=== PATIENT | female | born 1990 | race Caucasian/White ===

== ENCOUNTER → 2016-11-30 | Outpatient (CLI) | payer OTHER ==
[~2016-11-30] MED LIST: ACET50TA PO; IBUP80TA PO; PRENTAB7 PO
[2016-11-30 16:12] LABS: BASO % 0.3 % (0.0-1.0); EOS # 0.1 K/mm3 (0.0-0.50); EOS % 0.9 % (0.0-3.0); LARGE UNSTAINED CELL # 0.1 K/mm3 (0.0-0.4); LARGE UNSTAINED CELL % 1.1 % (0.0-4.0); LYMPH # 1.4 K/mm3 (1.5-6.5); LYMPH % 20.8 % (24.0-44.0); MEAN CORPUSCULAR HEMOGLOBIN 31.4 pg (27.0-33.0); MEAN CORPUSCULAR HGB CONC 34.7 g/dl (32.0-36.5); MEAN CORPUSCULAR VOLUME 90.5 fl (80.0-96.0); MONO # 0.3 K/mm3 (0.0-0.8); MONO % 4.2 % (0.0-5.0); NEUTROPHILS # 4.6 K/mm3 (1.8-7.7); NEUTROPHILS % 72.7 % (36.0-66.0); PLATELET COUNT, AUTOMATED 205 k/mm3 (150-450); RED CELL DISTRIBUTION WIDTH 12.2 % (11.5-14.5); WHITE BLOOD COUNT 6.4 K/mm3 (4.0-10.0)
[2016-12-01 11:42] LABS: HBsAg Prenatal NEGATIVE (NEGATIVE)
[2016-12-01 14:07] LABS: HIV SCRN NEGATIVE (NEGATIVE)
[2016-12-01 14:08] LABS: CONTROL LINE INT CTR LINE PRESENT; HIV SCRN1 NEGATIVE (NEGATIVE)
== END ==
LOC: M SMT 13:26
PROVIDERS: ATTEND Specialist
DX: Z34.81 Encounter for supervision of other normal pregnancy, first trimester (principal)

== ENCOUNTER → 2017-01-31 | Outpatient (CLI) | payer OTHER ==
--- NOTE | 2017-02-01 05:46 | REP ---
Clinical: Anatomical evaluation. Comparison: None . Findings: Examination demonstrates a single live intrauterine in cephalic presentation. motion is identified by technologist. Placenta is noted anteriorly and grade zero without evidence for placenta previa or abruption. Amniotic fluid volume is normal. Cervix measures 4.0 cm in length and appears closed. Evidence for nuchal cord. Gestational age by LMP 18 weeks 2 days with JULIA 07/02/2017 . Gestational age by current measurements 18 weeks 3 days with JULIA 07/01/2017 . FHR equals 155 beats per minute. BPD 4.0 cm 18 weeks 1 day HC 15.7 cm 18 weeks 4 days AC 12.8 cm 18 weeks 3 days FL 2.6 cm 18 weeks 0 days HL 2.7 cm 18 weeks 4 days HC/AC ratio 1.22 Estimated weight 231 grams ( 44th percentile). Anatomical assessment demonstrates normal structures including cranium, choroid plexus, cavum, cerebellum/posterior fossa, facial profile, lungs, diaphragm, stomach, cord insertion/three-vessel cord, kidneys/bladder, and extremities. Limited evaluation of the facial features, heart/ventricular outflow tracts, and spine noted. Impression: Single live intrauterine in cephalic presentation demonstrating appropriate interval growth. Anatomical limitations as described above may warrant reevaluation and follow-up. Nuchal cord noted. Signed by Stewart Leung MD 02/01/2017 05:37 A
== END ==
LOC: M RAD 10:39
PROVIDERS: ATTEND Obstetrics & Gynecology
DX: Z36 Encounter for antenatal screening of mother (principal)

== ENCOUNTER → 2017-03-15 | Outpatient (CLI) | payer OTHER ==
--- NOTE | 2017-03-16 03:49 | REP ---
Clinical: Anatomical evaluation. Comparison: 01/31/2017 . Findings: Examination demonstrates a single live intrauterine in oblique (head to maternal left) presentation. motion is identified by technologist. Placenta is noted anteriorly and grade one without evidence for placenta previa or abruption. Amniotic fluid volume is normal. Cervix measures 4.3 cm in length and appears closed. No evidence for nuchal cord. Gestational age by LMP 24 weeks 3 days with JULIA 06/01/2017 . Gestational age by current measurements 24 weeks 6 days with JULIA is 06/29/2017 . FHR equals 139 beats per minute. Estimated weight 786 grams ( 68th percentile). Anatomical assessment demonstrates normal structures including cranium, choroid plexus, cavum, cerebellum/posterior fossa, facial features, lungs, four-chamber heart/ventricular outflow tracts, diaphragm, stomach, cord insertion/three-vessel cord, kidneys/bladder, spine. Impression: 1. Single live intrauterine in transverse lie demonstrating appropriate interval growth. 2. In conjunction with prior examination anatomical assessment is complete and normal. Signed by Stewart Leung MD 03/16/2017 03:41 A
== END ==
LOC: M RAD 15:53
PROVIDERS: ATTEND Advanced Practice Midwife
DX: Z36 Encounter for antenatal screening of mother (principal)

== ENCOUNTER → 2017-04-19 | Outpatient (CLI) | payer OTHER ==
[~2017-04-19] MED LIST changes: +IBUP-1114 PO
[2017-04-19 09:20] LABS: BASO % 0.6 % (0.0-1.0); EOS # 0.1 K/mm3 (0.0-0.50); EOS % 1.1 % (0.0-3.0); LARGE UNSTAINED CELL # 0.1 K/mm3 (0.0-0.4); LARGE UNSTAINED CELL % 1.4 % (0.0-4.0); LYMPH # 1.6 K/mm3 (1.5-6.5); LYMPH % 20.1 % (24.0-44.0); MEAN CORPUSCULAR HEMOGLOBIN 33.2 pg (27.0-33.0); MEAN CORPUSCULAR HGB CONC 35.3 g/dl (32.0-36.5); MEAN CORPUSCULAR VOLUME 94.1 fl (80.0-96.0); MONO # 0.4 K/mm3 (0.0-0.8); MONO % 4.7 % (0.0-5.0); NEUTROPHILS # 5.6 K/mm3 (1.8-7.7); NEUTROPHILS % 72.2 % (36.0-66.0); PLATELET COUNT, AUTOMATED 152 k/mm3 (150-450); RED CELL DISTRIBUTION WIDTH 13.3 % (11.5-14.5); WHITE BLOOD COUNT 7.7 K/mm3 (4.0-10.0)
== END ==
LOC: M LAB 07:36
PROVIDERS: ATTEND Specialist
DX: Z34.82 Encounter for supervision of other normal pregnancy, second trimester (principal)

== ENCOUNTER → 2017-05-31 | Outpatient (REF) | payer OTHER | LOC: M LAB REF 13:30 | PROVIDERS: ATTEND Advanced Practice Midwife | DX: Z34.83 Encounter for supervision of other normal pregnancy, third trimester (principal) ==

== ENCOUNTER 2017-06-27 06:35 | Inpatient (IN) | payer OTHER ==
[2017-06-27] VITALS (7 sets, daily range): BP systolic 98–109; BP diastolic 58–83
[~2017-06-27] VITALS: Ht 154.9 cm; Wt 68.2 kg
[~2017-06-27 06:35] MED LIST changes: -IBUP-1114 PO
[2017-06-27] MEDS ORDERED: METHYLERGONOVINE MALEATE 0.2 MG TAB PO PRN (07:45)
[2017-06-27] MEDS ORDERED: DIBUCAINE 1% OINTMENT 30GM TOP PRN (07:45)
[2017-06-27] MEDS ORDERED: MEASLES,MUMPS,RUBELLA VACCINE INJ (MMR-II) (90707) SC SCH (07:45)
[2017-06-27] MEDS ORDERED: RHOGAM 300 MCG (1500 IU) INJ (J2790) IM SCH (07:45)
[2017-06-27] MEDS ORDERED: ACETAMINOPHEN 500 MG TAB PO PRN (07:45)
[2017-06-27] MEDS ORDERED: DOCUSATE SODIUM 100 MG CAP PO PRN (07:45)
[2017-06-27] MEDS ORDERED: MOM 30ML SUSPENSION UDC PO PRN (07:45)
[2017-06-27] MEDS ORDERED: ANUSOL HC CREAM 30GM TOP PRN (07:45)
[2017-06-27] MEDS ORDERED: OXYTOCIN INJ 10 UNITS/ML VIAL (J2590) IM ONE (07:45)
[2017-06-27] MEDS ORDERED: LIDOCAINE 1% MDV INJ 50 ML VIAL INFIL ONE (07:45)
--- NOTE | 2017-06-27 07:53 | DN ---
DATE: 06/27/2017 TIME OF : 6:49 GENDER: Male. APGARS: 9 and 9. WEIGHT: 3480 grams or 7 pounds 11 ounces. ANESTHESIA: None. COUNTS: 5 laparotomy sponges accounted for prior to and after delivery. Two sharps removed from delivery field. ESTIMATED BLOOD LOSS: 300 mL. DELIVERY NOTE: On 06/27/2017, at 0649, Ms. Delong a 27-year-old, 2, now para 2, had spontaneous vaginal delivery of a live-born male , Apgars 9 and 9. Weight was 3480 grams or 7 pounds 11 ounces. Head was delivered left occiput anterior (RASHMI). There was a nuchal cord which was manually reduced followed by delivery of the right anterior shoulder, left posterior shoulder and corpus. Infant was handed to mom with a good cry. Cord was clamped times two and was cut by the father of the baby under my direction. Cord blood was then obtained. Placenta was drained and delivered grossly intact. 10 milliunits of Pitocin was given IM along with uterine massage until the uterus was firm. On inspection, there was a first degree midline laceration which was repaired with #3-0 Vicryl Rapide. On reinspection, the cervix, vagina and perineum was grossly intact and hemostatic. Mom and baby to recovery in stable condition.
--- NOTE | 2017-06-27 07:55 | HPE ---
DATE OF ADMISSION: 06/27/2017 REASON FOR ADMISSION: Labor. HISTORY OF PRESENT ILLNESS: Ms. Delong is a 27-year-old 2, para 1, who presents at 39 weeks 2 days estimated gestational age by her last menstrual period, confirmed by first trimester ultrasound with complaints of contractions. She reports contractions that started approximately at 4 a.m. that have worsened in intensity and frequency. Her course has been unremarkable. She initiated care in the first trimester and has been appropriate throughout. PAST MEDICAL HISTORY: None. PAST SURGICAL HISTORY: None. PAST OBSTETRICAL HISTORY: She is 2, para 1. She has had one term vaginal delivery proven to 7 pounds 4 ounces. MEDICATIONS: Include: - vitamins She has NO KNOWN DRUG ALLERGIES. SOCIAL HISTORY: She denies any alcohol, tobacco, or drug use during the . PHYSICAL EXAMINATION: Her vital signs are stable. She is afebrile. She has category 1 heart tracing. Contractions ibrutinib tachometer. General appearance: Appears uncomfortable but no acute distress. Her abdomen is gravid, nontender. Cervical exam: She was completely dilated, 100% effaced, -1 station with spontaneous rupture of membranes shortly after exam of clear fluid. LABS: Her blood type is A negative. Antibody screen is negative. Rubella is immune. RPR nonreactive. Hepatitis surface antigen is negative. HIV is negative. Hepatitis C is nonreactive. Chlamydia and gonorrhea screens are negative. She had a normal 1-hour Glucola and she GBS negative. ASSESSMENT: 1. Ms. Delong is a 27-year-old 2, para 1, at 39 weeks 2 days estimated gestational age in active labor. 2. Reassuring status. PLAN: Is to admit to labor and delivery in anticipation of a precipitous vaginal delivery.
[2017-06-27] MEDS: PRENATAL VITAMINS CHEWABLE TABLET PO SCH (09:00)
[2017-06-27] MEDS: IBUPROFEN 800 MG TAB PO PRN ×2 (09:49→18:39)
[2017-06-28] MEDS: IBUPROFEN 800 MG TAB PO PRN ×3 (02:13→17:37)
[2017-06-28 06:11] VITALS: BP 102/61
[2017-06-28] MEDS: PRENATAL VITAMINS CHEWABLE TABLET PO SCH (09:40)
[2017-06-28 18:02] VITALS: BP 102/63
[2017-06-29] MEDS: IBUPROFEN 800 MG TAB PO PRN (02:05)
[2017-06-29 06:30] VITALS: BP 101/72
[2017-06-29] MEDS: PRENATAL VITAMINS CHEWABLE TABLET PO SCH (07:57)
[2017-06-29] MEDS ORDERED: IBUP-1114 PO (08:50)
[2017-06-29] MEDS ORDERED: ACET50TA PO (08:50)
[2017-06-29] MEDS ORDERED: INFLUENZA QUADRIVALENT PF VACCINE 0.5ML SYRINGE (90686) IM ONE (09:00)
== END 2017-06-29 10:20 | disposition home or self-care (01) | DRG 775 ==
LOC: M LDO 06:35 → M LDI 07:02 → M OBS 08:59
PROVIDERS: ADMIT Obstetrics & Gynecology; ATTEND Obstetrics & Gynecology
PROC: 10E0XZZ Delivery of Products of Conception, External Approach (ICD-10-PCS; principal; 2017-06-27)
PROC: 0HQ9XZZ Repair Perineum Skin, External Approach (ICD-10-PCS; 2017-06-27)
DX: O69.82X0 Labor and delivery complicated by other cord entanglement, without compression, not applicable or unspecified (principal); Z37.0 Single live birth; Z3A.39 39 weeks gestation of pregnancy; O70.0 First degree perineal laceration during delivery

== ENCOUNTER → 2017-10-30 | Outpatient (REF) | payer OTHER | LOC: M LAB REF 13:48 | DX: Z12.4 Encounter for screening for malignant neoplasm of cervix (principal) ==

== ENCOUNTER → 2018-04-19 | Outpatient (REF) | payer OTHER ==
[2018-04-24 12:01] LABS: VARICELLA ZOSTER VIRUS PCR Negative (Negative)
== END ==
LOC: M SFHCPLAZ 09:58
DX: Z01.84 Encounter for antibody response examination (principal)

== ENCOUNTER → 2019-12-04 | Outpatient (CLI) | payer OTHER ==
[~2019-12-04] MED LIST changes: -ACET50TA PO; +IBUP-1114 PO; +MAPA500T2 PO
[2019-12-04 09:48] LABS: HEMATOCRIT 33.6 % (36.0-47.0); HEMOGLOBIN 11.3 g/dl (12.0-15.5); MEAN CORPUSCULAR HEMOGLOBIN 31.7 pg (27.0-33.0); MEAN CORPUSCULAR HGB CONC 33.6 g/dl (32.0-36.5); MEAN CORPUSCULAR VOLUME 94.4 fl (80.0-96.0); PLATELET COUNT, AUTOMATED 177 10^3/uL (150-450); RED BLOOD COUNT 3.56 10^6/uL (4.00-5.40); WHITE BLOOD COUNT 5.9 10^3/uL (4.0-10.0)
[2019-12-04 11:23] LABS: CHLAMYDIA DNA AMPLIFICATION NEGATIVE (NEGATIVE); GC DNA AMPLIFICATION NEGATIVE (NEGATIVE)
[2019-12-05 10:18] LABS: HEPATITIS B SURFACE ANTIGEN NEGATIVE (NEGATIVE); HEPATITIS C VIRUS ABY INDEX < 0.0 INDEX (<0.8); RUBELLA IgG QUALITATIVE IMMUNE (IMMUNE)
[2019-12-05 11:26] LABS: HIV 1&2 SCREEN CENTAUR NEGATIVE (NEGATIVE)
== END ==
LOC: M PLALAB 08:22
PROVIDERS: ATTEND Obstetrics & Gynecology
DX: Z34.91 Encounter for supervision of normal pregnancy, unspecified, first trimester (principal); Z3A.00 Weeks of gestation of pregnancy not specified

== ENCOUNTER → 2020-01-20 | Outpatient (CLI) | payer OTHER ==
--- NOTE | 2020-01-21 16:07 | REP ---
Clinical: Anatomical evaluation. Comparison: None . Findings: Examination demonstrates a single live intrauterine in breech presentation. motion is identified by technologist. Placenta is noted anterior and grade I without evidence for placenta previa or abruption. Amniotic fluid volume is normal. Cervix measures 3.5 cm in length and appears closed. No evidence for nuchal cord. Gestational age by LMP 21 weeks 5 days with JULIA 05/27/2020 . Gestational age by current measurements 21 weeks 3 days with JULIA 05/29/2020 . FHR equals 143 beats per minute. BPD 5.1 cm 21 weeks 4 days HC 19.4 cm 21 weeks 4 days AC 16.8 cm 21 weeks 5 days FL 3.7 cm 21 weeks 5 days HL 3.6 cm 22 weeks 3 days HC/AC ratio 1.16 Estimated weight 444 grams ( 46th percentile). Anatomical assessment demonstrates normal structures including cranium, choroid plexus, cavum, cerebellum/posterior fossa, facial features, lungs, cardiac ventricular outflow tracts, diaphragm, stomach, cord insertion/three-vessel cord, kidneys/bladder, spine, and extremities. Impression: 1. single live intrauterine in breech presentation demonstrating appropriate interval growth. 2. Limited evaluation of the four-chamber heart. Remainder of the anatomical assessment is complete and normal.
== END ==
LOC: M WHC 13:43
PROVIDERS: ATTEND Obstetrics & Gynecology
DX: Z34.91 Encounter for supervision of normal pregnancy, unspecified, first trimester (principal); Z3A.00 Weeks of gestation of pregnancy not specified

== ENCOUNTER → 2020-02-17 | Outpatient (REF) | payer OTHER | LOC: M PLALAB 14:23 | PROVIDERS: ATTEND Obstetrics & Gynecology | DX: Z34.92 Encounter for supervision of normal pregnancy, unspecified, second trimester (principal) ==

== ENCOUNTER → 2020-04-26 | Outpatient (CLI) | payer OTHER ==
--- NOTE | 2020-04-26 10:45 | REP ---
Clinical: Anatomical evaluation. Comparison: 01/20/2020 . Findings: Examination demonstrates a single live intrauterine in cephalic presentation. motion is identified by technologist. Placenta is noted anterior and grade I I without evidence for placenta previa or abruption. Amniotic fluid volume is normal. Cervix measures 3.3 cm in length and appears closed. No evidence for nuchal cord. Gestational age by LMP 35 weeks 4 days with JULIA 05/27/2020 . Gestational age by current measurements 35 weeks 0 days with JULIA 05/31/2020 . FHR equals 136 beats per minute. Estimated weight 2705 grams ( 49th percentile). Anatomical assessment demonstrates normal structures including cranium, facial features, lungs, four-chamber heart/ventricular outflow tracts, diaphragm, stomach, three-vessel cord, and kidneys/bladder. Impression: Single live intrauterine in cephalic presentation demonstrating appropriate interval growth. In conjunction with prior examination anatomical assessment is complete and normal. Electronically Signed by Stewart Leung MD 04/26/2020 10:37 A
== END ==
LOC: M WHC 09:52
PROVIDERS: ATTEND Obstetrics & Gynecology
DX: Z34.92 Encounter for supervision of normal pregnancy, unspecified, second trimester (principal); Z3A.35 35 weeks gestation of pregnancy

== ENCOUNTER → 2020-05-11 | Outpatient (REF) | payer OTHER | LOC: M SFHCWAGY 07:49 | PROVIDERS: ATTEND Obstetrics & Gynecology | DX: Z11.8 Encounter for screening for other infectious and parasitic diseases (principal) ==

== ENCOUNTER 2020-05-25 17:10 | Inpatient (IN) | payer OTHER ==
[2020-05-25] MEDS ORDERED: OXYTOCIN 30 UNITS IN 0.9% NaCl 500ML IV BAG (J2590) As Ordered ONE (17:32)
[2020-05-25] MEDS ORDERED: IBUPROFEN 800 MG TAB As Ordered ONE (19:24)
[2020-05-25 19:57] VITALS: BP 100/52
[2020-05-25] MEDS ORDERED: MEASLES,MUMPS,RUBELLA VACCINE INJ (MMR-II) (90707) SQ SCH (20:00)
[2020-05-25] MEDS ORDERED: ACETAMINOPHEN 500 MG TAB PO PRN (20:00)
[2020-05-25] MEDS ORDERED: DOCUSATE SODIUM 100 MG CAP PO PRN (20:00)
[2020-05-25] MEDS ORDERED: RHOGAM 300 MCG (1500 IU) INJ (J2790) IM SCH (20:00)
[2020-05-25] MEDS ORDERED: METHYLERGONOVINE MALEATE 0.2 MG TAB PO PRN (20:00)
[2020-05-25] MEDS ORDERED: MOM 30ML SUSPENSION UDC PO PRN (20:00)
[2020-05-25] MEDS ORDERED: OXYTOCIN 30 UNITS IN 0.9% NaCl 500ML IV BAG (J2590) IV SCH (20:00)
[2020-05-25] MEDS ORDERED: ANUSOL HC CREAM 30GM TOP PRN (20:00)
[2020-05-26 06:00] VITALS: BP_SYST 101; BP_SYST 122; BP_DIAS 46; BP_DIAS 57
[2020-05-26] MEDS: IBUPROFEN 800 MG TAB PO PRN ×2 (08:11→20:30)
--- NOTE | 2020-05-26 08:21 | IPNPDOC ---
Progress Note Date of Service: May 26, 2020 Day#: 1 Progress Note SUBJECT: She is doing well without complaints. Ambulating, voiding and pain is well-controlled. Reports minimal lochia. +breast feeding OBJECTIVE: Alert and oriented times three. Abdomen: Fundus firm at U-2. Soft, NTTP. Ext: neg calf tenderness. ASSESSMENT: day #1 status post normal spontaneous vaginal delivery. Recovering in stable condition. PLAN: 1. Continue routine care 2. Discharge plans for tomorrow VS, I&O, 24H, Fishbone Vital Signs/I&O Vital Signs Date Time Temp Pulse Resp B/P (MAP) Pulse Ox O2 Delivery O2 Flow Rate FiO2 05/26/20 06:00 97.8 73 18 122/57 (78) 99 Room Air ABIDA BANG MD. May 26, 2020 08:21
[2020-05-26] MEDS ORDERED: BOOSTRIX/ADACEL VACCINE (DIPHTH/PERTUSS/ACELL/TETANUS) 0.5ML SYR IM ONE (09:00)
[2020-05-26 18:00] VITALS: BP 111/61
[2020-05-27 06:00] VITALS: BP 86/46
[2020-05-27] MEDS: IBUPROFEN 800 MG TAB PO PRN (08:42)
[2020-07-05 08:34] LABS: HEMOGLOBIN 12.6 g/dl (12.0-15.5); MEAN CORPUSCULAR HEMOGLOBIN 31.6 pg (27.0-33.0); MEAN CORPUSCULAR HGB CONC 34.1 g/dl (32.0-36.5); MEAN CORPUSCULAR VOLUME 92.7 fl (80.0-96.0); PLATELET COUNT, AUTOMATED 158 10^3/uL (150-450); RED BLOOD COUNT 3.99 10^6/uL (4.00-5.40); WHITE BLOOD COUNT 10.2 10^3/uL (4.0-10.0)
--- NOTE | 2020-07-13 07:33 | HPE ---
DATE OF ADMISSION: 05/25/2020 REASON FOR ADMISSION: Labor. HISTORY OF PRESENT ILLNESS: Mrs. Delong is a 30-year-old 3, para 2, who presents at 39 weeks 4 days estimated gestational age with complaints of contractions. The contractions started earlier today that have worsened in intensity and frequency. Her course has been unremarkable. She initiated care in the first trimester and has been appropriate throughout. PAST MEDICAL HISTORY: None. PAST SURGICAL HISTORY: None. PAST OBSTETRICAL HISTORY: She is a 3, para 2. She has had three term vaginal deliveries. She has proven to 7+ pounds. MEDICATIONS: Include vitamins. ALLERGIES: No known drug allergies. SOCIAL HISTORY: She denies any alcohol, tobacco, or drug use during . PHYSICAL EXAMINATION: VITAL SIGNS: Stable. She is afebrile. She has a category 1 heart tracings. Regular contractions on tocometer. ABDOMEN: Gravid and nontender. CERVICAL: She was 8 cm dilated, 100% effaced, -2 station. Bulging bag of membranes. ASSESSMENT: Mrs. Delong is a 22-year-old 3, para 2, at 39 weeks 4 days in active labor. Reassuring status. PLAN: Admit to labor and delivery. CBC, RPR, type and screen. Anticipate spontaneous vaginal delivery. MTDD
--- NOTE | 2020-07-15 16:06 | DN ---
DATE OF DELIVERY: 05/25/2020 TIME OF : 1736 GENDER: Male APGARS: 9 and 9 WEIGHT: 3160 grams or 6 pounds 15 ounces ANESTHESIA: None COUNTS: Five laparotomy sponges counted for prior to and after delivery. ESTIMATED BLOOD LOSS: 300 mL. DESCRIPTION OF DELIVERY: On 05/25/2020 at 1736, Ms. Delong a 30-year-old 3, now para 3, had a spontaneous vaginal delivery of a live born male infant Apgars 9 and 9. Weight was 3160 grams or 6 pounds 15 ounces. Head was delivered occiput anterior (OA) over an intact peritoneum followed by delivery of shoulders and corpus. Cord was clamped x2 and it was cut by the father of the baby under my direction. The placenta was then drained and delivered grossly intact. A premixed bag of 30 units of Pitocin and 50 mL of normal saline was bolused along with uterine massage. The uterus was firm. On inspection of the cervix and vagina, the peritoneum was grossly intact and hemostatic. Mom and baby are recovering in stable condition. ORIN
[2020-07-21 12:11] LABS: HIV 1&2 SCREEN CENTAUR NEGATIVE (NEGATIVE)
== END 2020-05-27 12:10 | disposition home or self-care (01) | DRG 807 ==
LOC: M LDI 17:10 → M OBS 19:46
PROVIDERS: ADMIT Obstetrics & Gynecology; ATTEND Obstetrics & Gynecology
PROC: 10E0XZZ Delivery of Products of Conception, External Approach (ICD-10-PCS; principal; 2020-05-25)
DX: O80 Encounter for full-term uncomplicated delivery (principal); Z37.0 Single live birth; Z3A.39 39 weeks gestation of pregnancy

== ENCOUNTER → 2020-12-14 | Outpatient (CLI) | payer SELFPAY | LOC: M LABSMTC 12:58 | PROVIDERS: ATTEND Pediatrics | DX: Z11.52 Encounter for screening for COVID-19 (principal) ==

== ENCOUNTER → 2021-01-03 | Outpatient (REF) | LOC: M LABSMTC 13:55 | PROVIDERS: ATTEND Pediatrics | DX: Z20.822 Contact with and (suspected) exposure to COVID-19 (principal) ==

== ENCOUNTER → 2021-01-06 | Outpatient (REF) | LOC: M LABSMTC 13:40 | PROVIDERS: ATTEND Pediatrics | DX: Z20.822 Contact with and (suspected) exposure to COVID-19 (principal) ==

== ENCOUNTER → 2021-06-20 | Outpatient (REF) | LOC: M LABSMTC 09:59 | PROVIDERS: ATTEND Pediatrics | DX: Z11.52 Encounter for screening for COVID-19 (principal) ==

== ENCOUNTER 2021-09-05 08:40 | Outpatient (RCR) | END 2021-09-05 15:00 | disposition home or self-care (01) | LOC: M EMP 08:40 | PROVIDERS: ATTEND Pediatrics | DX: Z11.52 Encounter for screening for COVID-19 (principal) ==

== ENCOUNTER → 2023-09-19 | Outpatient (REF) | payer OTHER, BC ==
[2023-09-19 15:24] LABS: BASO % 0.6 % (0.0-1.0); EOS # 0.1 10^3/uL (0.0-0.5); HEMATOCRIT 39.8 % (36.0-47.0); HEMOGLOBIN 13.2 g/dl (12.0-15.5); LYMPH # 1.2 10^3/uL (1.5-5.0); LYMPH % 22.9 % (24.0-44.0); MEAN CORPUSCULAR HEMOGLOBIN 31.1 pg (27.0-33.0); MEAN CORPUSCULAR HGB CONC 33.2 g/dl (32.0-36.5); MEAN CORPUSCULAR VOLUME 93.6 fl (80.0-96.0); MONO # 0.5 10^3/uL (0.0-0.8); MONO % 9.2 % (2.0-8.0); NEUTROPHILS # 3.3 10^3/uL (1.5-8.5); NEUTROPHILS % 64.9 % (36.0-66.0); PLATELET COUNT, AUTOMATED 204 10^3/uL (150-450); RED BLOOD COUNT 4.25 10^6/uL (4.00-5.40); WHITE BLOOD COUNT 5.1 10^3/uL (4.0-10.0)
[2023-09-19 15:50] LABS: HEMOGLOBIN A1c 4.5 % (4.0-6.0)
[2023-09-19 16:51] LABS: ALBUMIN 4.3 G/DL (3.2-5.2); ALKALINE PHOSPHATASE 51 U/L (46-116); ALT/SGPT 14 U/L (7.0-40); AST/SGOT 11 U/L (<34); BILIRUBIN,TOTAL 0.6 MG/DL (0.3-1.2); BLOOD UREA NITROGEN 15 MG/DL (9-23); CALCIUM LEVEL 9.1 MG/DL (8.5-10.1); CARBON DIOXIDE LEVEL 26 MMOL/L (20-31); CHLORIDE LEVEL 106 MMOL/L (98-107); CREATININE FOR GFR 0.69 MG/DL (0.55-1.30); GLOMERULAR FILTRATION RATE > 60.0 (>60); GLUCOSE, FASTING 100 MG/DL (60-100); POTASSIUM SERUM 4.2 MMOL/L (3.5-5.1); SODIUM LEVEL 141 MMOL/L (136-145); TOTAL PROTEIN 6.6 G/DL (5.7-8.2)
[2023-09-19 16:53] LABS: THYROID STIMULATING HORMONE 0.666 uIU/ML (0.55-4.78)
[2023-09-19 16:59] LABS: FREE T4 1.16 NG/DL (0.89-1.76)
== END ==
LOC: M PLALAB 13:48
PROVIDERS: ATTEND Nurse Practitioner Family
DX: N92.6 Irregular menstruation, unspecified (principal); R53.82 Chronic fatigue, unspecified; Z12.4 Encounter for screening for malignant neoplasm of cervix
CPT/HCPCS: 36415; 80053; 82306; 83036; 83498; 84439; 84443; 85025; 87624; G0123

== ENCOUNTER → 2024-12-03 | Outpatient (CLI) | payer BC | LOC: M WHC 09:51 | PROVIDERS: ATTEND Nurse Practitioner Family | DX: Z53.9 Procedure and treatment not carried out, unspecified reason (principal) ==

== ENCOUNTER → 2025-01-20 | Outpatient (CLI) | payer BC ==
[2025-01-20 10:12] LABS: BASO % 0.7 % (0.0-1.0); EOS # 0.1 10^3/uL (0.0-0.5); EOS % 1.1 % (0.0-3.0); HEMATOCRIT 46.2 % (36.0-47.0); HEMOGLOBIN 15.3 g/dl (12.0-15.5); LYMPH # 1.6 10^3/uL (1.5-5.0); LYMPH % 28.4 % (24.0-44.0); MEAN CORPUSCULAR HEMOGLOBIN 31.2 pg (27.0-33.0); MEAN CORPUSCULAR HGB CONC 33.1 g/dl (32.0-36.5); MEAN CORPUSCULAR VOLUME 94.1 fl (80.0-96.0); MONO # 0.4 10^3/uL (0.0-0.8); MONO % 7.8 % (2.0-8.0); NEUTROPHILS # 3.5 10^3/uL (1.5-8.5); NEUTROPHILS % 61.6 % (36.0-66.0); PLATELET COUNT, AUTOMATED 223 10^3/uL (150-450); RED BLOOD COUNT 4.91 10^6/uL (4.00-5.40); WHITE BLOOD COUNT 5.7 10^3/uL (4.0-10.0)
[2025-01-20 10:24] LABS: INR 0.95; PARTIAL THROMBOPLASTIN TIME 28.4 SECONDS (24.8-34.2); PROTHROMBIN TIME 12.9 SECONDS (12.5-14.5)
[2025-01-20 10:26] LABS: ALBUMIN 4.2 G/DL (3.2-5.2); ALKALINE PHOSPHATASE 59 U/L (35-104); ALT/SGPT 15 U/L (7.0-40); AST/SGOT 9 U/L (<34); BILIRUBIN,TOTAL 0.6 MG/DL (0.3-1.2); BLOOD UREA NITROGEN 12 MG/DL (9-23); CALCIUM LEVEL 9.5 MG/DL (8.5-10.1); CARBON DIOXIDE LEVEL 28 MMOL/L (20-31); CHLORIDE LEVEL 108 MMOL/L (98-107); CHOLESTEROL LEVEL 171 MG/DL (<200); CHOLESTEROL RISK RATIO 2.05 (<5); CREATININE FOR GFR 0.87 MG/DL (0.55-1.30); GLOMERULAR FILTRATION RATE > 90.0 (>60); GLUCOSE, FASTING 90 MG/DL (60-100); HDL CHOLESTEROL 83.2 MG/DL (>40); LDL CHOLESTEROL 76.2 MG/DL (<100); NON-HDL-C 87.8 MG/DL; POTASSIUM SERUM 4.6 MMOL/L (3.5-5.1); SODIUM LEVEL 144 MMOL/L (136-145); TRIGLYCERIDES LEVEL 58 MG/DL (<150)
[2025-01-20 10:28] LABS: THYROID STIMULATING HORMONE 0.761 uIU/ML (0.55-4.78)
== END ==
LOC: M PLALAB 08:00
PROVIDERS: ATTEND Nurse Practitioner Family
DX: Z00.00 Encounter for general adult medical examination without abnormal findings (principal); R53.83 Other fatigue; Z13.220 Encounter for screening for lipoid disorders; E55.9 Vitamin D deficiency, unspecified; R23.3 Spontaneous ecchymoses

== ENCOUNTER 2025-02-11 09:55 | Day surgery (SDC) | payer BC ==
[~2025-02-11] VITALS: Ht 154.9 cm; Wt 63.5 kg
[~2025-02-11 09:55] MED LIST changes: +LEXA1TAB PO
[2025-02-11] MEDS ORDERED: ONDANSETRON 4MG 2ML VIAL ONE (11:40)
[2025-02-11] MEDS ORDERED: LIDOCAINE 2% 100MG/5ML SDV (FOR ANES.) ONE (11:40)
[2025-02-11] MEDS ORDERED: propofoL 200 MG/20 ML VIAL ONE (11:40)
[2025-02-11 11:52] VITALS: TEMP 96.9
[2025-02-11 12:12] VITALS: BP 100/56; O2SAT 100
== END 2025-02-11 12:22 | disposition home or self-care (01) ==
LOC: M OPP 09:55
PROVIDERS: ATTEND Surgery
DX: K92.1 Melena (principal); K64.0 First degree hemorrhoids; F41.9 Anxiety disorder, unspecified; Z79.899 Other long term (current) drug therapy
CPT/HCPCS: 45378; J2405